=== PATIENT | female | born 1940 | race Caucasian/White ===

== ENCOUNTER 2016-10-08 05:14 | Inpatient (IN) | payer OTHER, BC ==
[2016-09-23 09:16] LABS: URINE BILIRUBIN NEGATIVE (Negative); URINE BLOOD TRACE (Negative); URINE COLOR YELLOW; URINE GLUCOSE-RANDOM* NEGATIVE (Negative); URINE KETONES NEGATIVE (Negative); URINE LEUKOCYTES-REFLEX NEGATIVE (Negative); URINE PROTEIN (DIPSTICK) NEGATIVE (Negative); URINE SPECIFIC GRAVITY <= 1.005 (1.003-1.035); URINE UROBILINOGEN 0.2 E.U./dl (0.2-1.0)
[2016-09-23 09:18] LABS: HEMATOCRIT 39.7 % (37.0-47.0); HEMOGLOBIN 13.1 gm/dL (12.0-15.0); MCH 30.7 pg (26.0-34.0); MCHC 33.1 % (28.0-37.0); MCV 92.9 fL (80.0-100.0); RBC 4.27 mil/uL (4.20-5.00); RDW 13.4 % (10.5-14.5); WBC 4.4 thou/uL (4.0-11.0)
[2016-09-23 09:29] LABS: ALBUMIN 3.8 g/dL (3.4-5.0); CALCIUM 9.1 mg/dL (8.5-10.1); CREATININE 0.7 mg/dL (0.6-1.3); POTASSIUM 3.9 mmol/L (3.5-5.1); PROTIME 10.7 Seconds (9.3-11.4)
[~2016-10-08] VITALS: Ht 154.9 cm; Wt 50.8 kg
[2016-10-08] VITALS (8 sets, daily range): BP systolic 135–164; BP diastolic 52–73
--- NOTE | ~2016-10-08 | HC ---
[facility] [place] [address] CONSULTATION Name: SHOLA FLORES Room #: 545-P ADM IN M.R.#: [id number] Admission: 10/08/16 Attend Phys: Roger Mckenzie MD Discharge: Date of : 40 Report #: [id number] THIS REPORT FOR: //name// CC: Albaro Mckenzie DATE OF SERVICE: 10/08/2016 REASON FOR CONSULT: Consult has been requested by Dr. Mckenzie for management of hypertension. HISTORY OF PRESENT ILLNESS: The patient is a 76-year-old female with history of hypertension who was admitted today for an elective right knee arthroplasty. The patient is seen postoperatively in the medical floor. The patient is lethargic, but she does wake up and answer questions. She is presently on a morphine GRANULATING BLENDER. The patient denies any chest pain, dizziness, palpitation. She had some mild nausea, but no vomiting. The pain is fairly well controlled. PAST MEDICAL HISTORY: Significant for hypertension, history of back surgery. No diabetes, no coronary artery disease, no CVA. ALLERGIES: She is allergic to HYDROCODONE, unknown reaction. HOME MEDICATIONS: Includes losartan, hydrochlorothiazide. She also takes omega-3 fatty acid, meloxicam, calcium citrate, lactobacillus, vitamin B, cholecalciferol, collagen and multivitamin. SOCIAL HISTORY: No smoke, alcohol abuse, or illicit drug abuse. FAMILY HISTORY: Significant for hypertension. REVIEW OF SYSTEMS: Kind of limited because of patient's lethargy. PHYSICAL EXAMINATION: VITAL SIGNS: Blood pressure 162/72, heart rate of 70 per minute. She is saturating 100% on 2 liters of oxygen. GENERAL: She has lethargy, but does wake up, follows command. She just goes back to sleep. EYES: Pupils equal, reactive to light. NECK: Supple, no JVD, no bruit, no lymphadenopathy. CARDIOVASCULAR: S1, S2, negative S3, no murmur. CHEST: Bilateral air entry present. Clear on auscultation. ABDOMEN: Soft, bowel sounds present, no mass, no organomegaly, no tenderness. PERIPHERY: No pedal edema. No calf tenderness. Dorsalis pedis 1+. [facility] [address] [place] [address] CONSULTATION Name: SHOLA FLORES Room #: 545-P ADM IN M.R.#: [id number] Admission: 10/08/16 Attend Phys: Roger Mckenzie MD Discharge: Date of : 40 Report #: [id number] NEUROLOGIC: She is lethargic, but does wake up and follows simple commands. LABORATORY DATA: Reviewed labs done on 09/23, showed a white count of 4.4, normal hemoglobin, hematocrit and platelets. INR is 1.0. Chemistry showed a BUN 14, creatinine of 0.7. UA revealed negative leukocyte. ASSESSMENT AND PLAN: 1. Hypertension. We will monitor blood pressure closely. The patient is already losartan/hydrochlorothiazide. This morning, we will restart her back again on losartan/ hydrochlorothiazide in the morning. 2. Status post right knee arthroplasty. Postoperative course as per Orthopedic Surgery. The patient is on Xarelto for deep venous thrombosis prophylaxis. We will check her labs in the morning. We will continue on bedside pulse oximetry for close monitoring. Treatment plan has been explained to the patient and the nursing staff in detail. <ELECTRONICALLY SIGNED> By: Paulo Avila MD 10/09/16 1306 1424 1849 Paulo Avila MD /nt
--- NOTE | ~2016-10-08 | O ---
[facility] [place] [place] [address] OPERATIVE REPORT Name: SHOLA FLORES Room #: 545-P [facility] IN M.R.#: [id number] Admission: 10/08/16 Attend Phys: Roger Mckenzie MD Discharge: 10/11/16 Date of : 40 Report #: [id number] THIS REPORT FOR: //name// CC: Albaro Mckenzie DATE OF SERVICE: 10/08/2016 PREOPERATIVE DIAGNOSIS: Right knee degenerative joint disease, severe. POSTOPERATIVE DIAGNOSIS: Right knee degenerative joint disease, severe. OPERATIVE PROCEDURE: Right total knee arthroplasty. SURGEON: Roger Mckenzie MD. NEWSPAPER PUBLISHER: Juanito Taylor, nurse practitioner. INDICATIONS FOR NEWSPAPER PUBLISHER: During the course of operation, extensive manipulation, retraction, and limb positioning was required. This was afforded to me by my operations and intelligence assistant. ANESTHESIA: General. INDICATIONS: See hospital H and P revisions 10/08/2016. IMPLANTS UTILIZED: We used a cruciate retaining femoral component of size 3 press fit, size 2.5 tibial tray with 12.5 mm insert, and a 35 mm oval dome patella. DESCRIPTION OF PROCEDURE: After adequate general anesthesia had been obtained, the patient's right lower extremity was prepped and draped in the usual meticulous sterile fashion. Limb was exsanguinated with gravity. Tourniquet was inflated to 300 torr. An anterior midline incision was made, subQ divided sharply. Hemostasis obtained with electrocautery. Medial parapatellar incision was made. Infrapatellar fat pad excised. Medial release performed. The drill was used to drill the distal femur. This hole was enlarged, irrigated, suctioned, and the intramedullary guide placed the full length of the femur. The distal femoral cutting guide was pinned to appropriate height, distal femoral cut was made. A measuring device determined the size 3 as appropriate size for this patient. We marked the distal femur, impacted the cutting guide into place, and the anterior, posterior, and chamfer cuts were made. Rongeur was used to remove additional osteophytes. At this time, the ACL was transected, tibia translated anteriorly, menisci were [facility] [address] [place] [address] OPERATIVE REPORT Name: SHOLA FLORES Room #: 545-P DIS IN M.R.#: [id number] Admission: 10/08/16 Attend Phys: Roger Mckenzie MD Discharge: 10/11/16 Date of : 40 Report #: [id number] excised. The drill was used to drill the central portion of the tibia. This hole was enlarged, irrigated, suctioned, and the intramedullary guide placed the full length of the tibia. Proximal tibial cutting guide placed at appropriate height. Proximal tibia cut was made. 2-2 tray gave us the best coverage on the tibia. Trial components were put in position with a 12.5 spacer. He had the best flexion and extension gap. Patella tracked normally. Patella was then measured. Cutting guide clamped into place. Patellar cut was made. 35 template gave us the best coverage. PEG holes were drilled, trial component was put in place, it tracked normally. At this time, the knee was taken through several cycles of flexion and extension, and the tibial tray rotation was then marked. Distal femur drilled. Trial components were removed. The tibial keel cuts were made, and the knee was irrigated with both pulse lavage and antibiotic irrigation. We placed the bone plugs in proximal tibia and distal femur. The cement was vacuum mixed, and when it reached the appropriate consistency, the knee was thoroughly dried. The tibial tray was cemented into place. Excess cement was removed. The polyethylene was impacted into place, and the femur impacted in to place, and the knee was taken out to 30 degrees of flexion with uniform compression placed across the components. Patellar button was then cemented into place, and again excess cement was removed. At this time, drains were placed superolaterally, irrigation was placed in the wound, and allowed to rest in the wound while the cement fully cured. When it had done so, the knee was irrigated, dried thoroughly and inspected. The retinacular layer was then closed with combination of interrupted [id number] #1 Vicryl, as well as running #1 Tevdek. SubQ closed with 2-0 Monocryl. Skin closed with lukas. Sterile compressive dressing was applied. Tourniquet deflated. <ELECTRONICALLY SIGNED> By: Roger Mckenzie MD 10/22/16 1420 0958 1306 Roger Mckenzie MD /nt
--- NOTE | ~2016-10-08 | EKG ---
[address] [address] ELECTROCARDIOGRAM REPORT Name: SHOLA FLORES [id number] Admission: Attend Phys: Roger Mckenzie MD Discharge: Date of : 40 Report #: [id number] THIS REPORT FOR: //name// [facility] Test Date: 2016-09-23 Test Time: 08:59:41 Pat Name: SHOLA FLORES Department: Room: Gender: F Mailing Clerk: Jl ALBARADO : 1940 Requested By: Roger Mckenzie Order Number: [id number] MD: Cyrus Cartagena Measurements Intervals [place] Rate: 62 P: 64 AK: 139 QRS: -7 QRSD: 89 T: 43 QT: 391 QTc: 397 Interpretive Statements Sinus rhythm No significant abnormality No previous ECG available for comparison Electronically Signed On 09-24-2016 8:11:49 FUR POLISHER by Cyrus Cartagena [email or web address] <ELECTRONICALLY SIGNED> By: Cyrus Cartagena MD, [facility] 09/24/16 0811 0859 0859 Cyrus Cartagena MD, FAC /EPI
--- NOTE | ~2016-10-08 | H ---
[facility] [address] [place] [address] HISTORY AND PHYSICAL Name: SHOLA FLORES Room #: 545-P DIS IN M.R.#: [id number] Admission: 10/08/16 Attend Phys: Roger Mckenzie MD Discharge: 10/11/16 Date of : 40 Report #: [id number] THIS REPORT FOR: //name// For History and Physical, please see office documentation/handwritten note in the patient's medical record. <ELECTRONICALLY SIGNED> By: Roger Mckenzie MD 10/22/16 1420 1429 Roger Mckenzie MD /
[~2016-10-08 05:14] MED LIST: B-50 COMPLEX1 EAC1 PO; CALCIUM CITRAT1 EA14 PO; CALCIUM CITRAT250 MG PO; COLLAGEN HYDROLY1 GM PO; GLUCOSAMINE-CH1 EA15 PO; LOSARTAN-HCTZ1 EACH PO; MOBIC7.5 MG PO; MULTIVIT &0.5 MG/1 M PO; MULTIVITAMINS PO; NAPROSYN500 MG PO; OMEGA-31000 M1 PO; PREVACID30 MG PO; PROBIOTIC1 EAC1 PO; TRAMADOL 50 MG50 MG PO; VITAMIN D31000 UNI2 PO
[2016-10-09 03:48] VITALS: BP 118/54
[2016-10-09 04:05] LABS: HEMATOCRIT 34.1 % (37.0-47.0); HEMOGLOBIN 11.5 gm/dL (12.0-15.0); MCH 30.4 pg (26.0-34.0); MCHC 33.7 % (28.0-37.0); MCV 90.4 fL (80.0-100.0); PLATELET COUNT 247 thou/uL (150-400); RBC 3.77 mil/uL (4.20-5.00); RDW 13.7 % (10.5-14.5); WBC 11.8 thou/uL (4.0-11.0)
[2016-10-09 04:16] LABS: MANUAL DIFF YES
[2016-10-09 04:18] LABS: CALCIUM 8.8 mg/dL (8.5-10.1); CREATININE 0.6 mg/dL (0.6-1.3); MAGNESIUM 1.9 mg/dL (1.8-2.4); POTASSIUM 4.7 mmol/L (3.5-5.1)
[2016-10-09 05:27] LABS: ABSOLUTE NEUTROPHILS 9.6 thou/uL (1.4-8.2); TOTAL CELL COUNT 100
[2016-10-09 08:00] VITALS: BP 146/43
[2016-10-09 19:50] VITALS: BP 130/50
[2016-10-10 03:15] VITALS: BP 144/58
[2016-10-10 04:11] LABS: HEMATOCRIT 30.9 % (37.0-47.0); HEMOGLOBIN 10.4 gm/dL (12.0-15.0); MCH 30.5 pg (26.0-34.0); MCHC 33.8 % (28.0-37.0); MCV 90.3 fL (80.0-100.0); PLATELET COUNT 221 thou/uL (150-400); RBC 3.42 mil/uL (4.20-5.00); RDW 13.4 % (10.5-14.5)
[2016-10-10 04:12] LABS: MANUAL DIFF YES
[2016-10-10 04:26] LABS: CALCIUM 8.5 mg/dL (8.5-10.1); CREATININE 0.6 mg/dL (0.6-1.3)
[2016-10-10] MEDS ORDERED: PERCOCET 10-321 EACH PO (06:42)
[2016-10-10] MEDS ORDERED: XARELTO10 MG PO (06:42)
[2016-10-10 07:31] LABS: ABSOLUTE NEUTROPHILS 9.6 thou/uL (1.4-8.2); TOTAL CELL COUNT 100
[2016-10-10 07:33] LABS: ANISOCYTOSIS SLIGHT
[2016-10-10 09:42] VITALS: BP 126/57
[2016-10-10] MEDS ORDERED: ULTRA-LIGHT RO1 EACH MC (12:23)
[2016-10-10 16:54] VITALS: BP 115/80
[2016-10-10 20:11] VITALS: BP 133/61
[2016-10-11 04:25] VITALS: BP 121/62
[2016-10-11 05:46] LABS: MCH 30.9 pg (26.0-34.0); MCHC 33.3 % (28.0-37.0); MCV 92.9 fL (80.0-100.0); RBC 3.23 mil/uL (4.20-5.00); RDW 13.4 % (10.5-14.5); WBC 10.1 thou/uL (4.0-11.0)
[2016-10-11 08:52] VITALS: BP 136/63
[2016-10-11 08:54] VITALS: BP 136/63
[2016-10-11 11:49] VITALS: BP 136/63
== END 2016-10-11 13:40 | disposition home health service (06) | DRG 470 ==
LOC: 5S 05:14 → TBA 05:14 → PRE 08:15 → 5S 11:41 → PRE 14:01 → 5S 10-11 13:40
PROVIDERS: Internal Medicine; Orthopaedic Surgery
PROC: 0SRC0J9 Replacement of Right Knee Joint with Synthetic Substitute, Cemented, Open Approach (ICD-10-PCS; principal; 2016-10-08)
DX: M17.11 Unilateral primary osteoarthritis, right knee (principal); I10 Essential (primary) hypertension; Z98.890 Other specified postprocedural states; Z88.5 Allergy status to narcotic agent; Z82.49 Family history of ischemic heart disease and other diseases of the circulatory system; Z79.01 Long term (current) use of anticoagulants; Z79.899 Other long term (current) drug therapy; Z79.891 Long term (current) use of opiate analgesic
CPT/HCPCS: 10785; 50010; 50101; 50415; 50612; 50954; 51130; 51225; 51320; 51412; 51771; 52001; 52282; 53000; 53078; 53364; 56525; 56527; 57095; 62110; 62900; 65060; 70005

== ENCOUNTER 2018-01-06 05:24 | Day surgery (SDC) | payer OTHER, BC ==
[~2018-01-06] VITALS: Ht 160 cm; Wt 53.5 kg
--- NOTE | ~2018-01-06 | EKG ---
[address] [address] ELECTROCARDIOGRAM REPORT Name: SHOLA FLORES Room #: 150-4 [facility]#: [id number] Admission: 01/06/18 Attend Phys: Leonides Munoz MD Discharge: Date of : 40 Report #: [id number] THIS REPORT FOR: //name// [facility] Test Date: 2018-01-06 Test Time: 13:21:48 Pat Name: SHOLA FLORES Department: Room: 150 4 Gender: F Ceramic Designer: CAMILLA : 1940 Requested By: Leonides Munoz Order Number: [id number] MD: Cyrus Cartagena Measurements Intervals [place] Rate: 67 P: 73 NH: 142 QRS: -23 QRSD: 89 T: 33 QT: 384 QTc: 406 Interpretive Statements Sinus arrhythmia Borderline left axis deviation Compared to ECG 09/23/2016 08:59:41 No significant change was found Electronically Signed On 01-06-2018 16:49:29 CDT by Cyrus Cartagena [email or web address] <ELECTRONICALLY SIGNED> By: Cyrus Cartagena MD, [facility] 01/06/18 1649 1321 1321 Cyrus Cartagena MD, FAC /EPI
--- NOTE | ~2018-01-06 | O ---
[facility] [place] [address] OPERATIVE REPORT Name: SHOLA FLORES Room #: DEP [facility]#: [id number] Admission: 01/06/18 Attend Phys: Leonides Munoz MD Discharge: 01/06/18 Date of : 40 Report #: [id number] THIS REPORT FOR: //name// CC: Albaro Munoz DATE OF SERVICE: 01/06/2018 SERVICE: Orthopedics. FACILITY: [place]. SURGEON: Leonides Munoz MD SOFTWARE SYSTEMS ANALYST: None. PREOPERATIVE DIAGNOSES: 1. Left knee stiffness. 2. Status post left total knee arthroplasty in 06/2017. POSTOPERATIVE DIAGNOSES: 1. Left knee stiffness. 2. Status post left total knee arthroplasty in 06/2017. PROCEDURE: Manipulation under anesthesia, left total knee replacement. COMPLICATIONS: None. DRAINS: None. SPECIMENS: None. FINDINGS: Preoperative flexion of 95 degrees. Postoperative flexion 120 degrees. No fracture. HISTORY: The patient is a 77-year-old female who is status post bilateral total knee arthroplasties; the right side, which did very well; the left side, which developed stiffness that was affecting her primarily with some loss of terminal flexion. She was having difficulty maintaining flexion at a functional point and wished to have further treatment done. We discussed manipulation under anesthesia as an option and she wished to proceed with this. Risks, benefits, alternatives and indications of surgery were discussed with her in detail preoperatively. Risks include but not limited to pain, bleeding, bruising, fractures, continued stiffness, need for further surgery including revision as well as complications related to anesthesia such as stroke, heart attack, pulmonary complications, thromboembolic disease and . [facility] [address] [place] [address] OPERATIVE REPORT Name: SHOLA FLORES Room #: DEP [facility]#: [id number] Admission: 01/06/18 Attend Phys: Leonides Munoz MD Discharge: 01/06/18 Date of : 40 Report #: [id number] PROCEDURE IN DETAIL: After left leg was correctly identified as the operative extremity, the patient was taken to the operating room where general anesthesia was induced without complication. She was padded appropriately. Left leg was exposed. Time-out procedure was performed. The patient had a good terminal flexion, so no manipulation was performed on the extension side. The knee was then flexed and found to have a firm endpoint at 95 degrees of flexion. A gentle manipulation was then performed with audible release of adhesions within the knee. The knee was flexed and then the hip was placed in a flexed position as well to further improve her range of motion. She was easily able to achieve 120 degrees of motion. At this point, no further flexion was easily achieved and so we finished the procedure at that point as our goal was approximately 110-115 degrees of flexion. The patient was awakened from anesthesia and taken to recovery room in stable condition. There were no complications and all counts were recorded as correct. <ELECTRONICALLY SIGNED> By: Leonides Munoz MD 01/07/18 0641 1712 1740 Leonides Munoz MD /artemio
[~2018-01-06 05:24] MED LIST changes: +MAGNESIUM500 MG PO; +PERCOCET 10-321 EACH PO; +TURMERIC500 M2 PO; +ULTRA-LIGHT RO1 EACH MC; +XARELTO10 MG PO
[2018-01-06 13:30] LABS: CALCIUM 9.6 mg/dL (8.5-10.1); CREATININE 0.6 mg/dL (0.6-1.0); POTASSIUM 3.6 mmol/L (3.5-5.1)
[2018-01-06 14:16] VITALS: BP 156/49
[2018-01-06 15:18] VITALS: BP 156/49
== END 2018-01-06 15:46 | disposition home or self-care (01) ==
LOC: OR 05:24 → TBA 05:25 → OR 14:17
PROVIDERS: Orthopaedic Surgery Sports Medicine
DX: M25.662 Stiffness of left knee, not elsewhere classified (principal); Z96.653 Presence of artificial knee joint, bilateral; I10 Essential (primary) hypertension; K21.9 Gastro-esophageal reflux disease without esophagitis; Z98.890 Other specified postprocedural states; Z79.899 Other long term (current) drug therapy; Z88.8 Allergy status to other drugs, medicaments and biological substances
CPT/HCPCS: 50010; 50101; 62110; 62900; 70005